=== PATIENT | female | born 2000 | race Caucasian/White ===

== ENCOUNTER 2021-11-11 23:36 | Emergency (ER) | payer MEDICAID, SELFPAY ==
[2021-11-11 23:45] VITALS: BP 144/85; PULSE 100; RESP 17; TEMP 36.7; O2SAT 97; BMI 50.8
--- NOTE | 2021-11-12 00:48 | XRR_ITS ---
PROCEDURE INFORMATION: Exam: XR Chest Exam date and time: 11/12/2021 12:56 AM Age: 20 years old Clinical indication: Angina; Additional info: Cp TECHNIQUE: Imaging protocol: Radiologic exam of the chest. Views: 1 view. COMPARISON: No relevant prior studies available. FINDINGS: Lungs: Unremarkable. No consolidation. Pleural spaces: Unremarkable. No pleural effusion. No pneumothorax. Heart/Mediastinum: Unremarkable. No cardiomegaly. Bones/joints: Unremarkable. XR/XR chest 1V portable [id number] IMPRESSION: No acute findings.
--- NOTE | 2021-11-12 00:48 | ECG_ITS ---
[facility] Test Date: 2021-11-11 Pat Name: Yesi Clifford Department: Room: Gender: Female Accounting Assistant: : 2000 Requested By: Radha Kingsley Order Number: [id number] Janna MD: Magno Arias M.D. Measurements Intervals [place] Rate: 105 P: 18 GA: 152 QRS: 25 QRSD: 76 T: 20 QT: 321 QTc: 425 Interpretive Statements SINUS TACHYCARDIA POSSIBLE ANTERIOR MYOCARDIAL INFARCTION , OF INDETERMINATE AGE [30 ms Q WAVE IN V3/V4, OR R < 0.2 mV IN V4] No previous ECG available for comparison Electronically Signed On 11-12-2021 8:41:14 CDT by Magno Arias M.D. [id number]
--- NOTE | 2021-11-12 00:53 | W.ED.GENADLT ---
HPI - General Adult General: Chief complaint: General Medical Stated complaint: High B/P Time Seen by Provider: 11/12/21 00:12 Source: patient Mode of arrival: ambulatory Limitations: no limitations History of Present Illness: 20-year-old female who has a history of hypertension. She states that she is not very consistent in taking her meds and missed her lisinopril for 4 to 5 days. She states that tonight she started to feel lightheaded and having chest pain checked her blood pressure was in the 180s and she took a 10 mg lisinopril it is actually . Her blood pressure is improved here and states she does feel improved currently. She denies any vomiting or diarrhea denies any headaches. Associated symptoms: Reports chest pain; Deny dyspnea, headache(s), nausea, rash or vomiting Review of Systems Const: Denies: fever(s), chills, body aches or change in appetite Eyes: Denies: blurry vision or eye discomfort ENMT: Denies: throat pain or dental pain Card: Reports: chest pain Resp: Denies: dyspnea GI: Denies: abdominal pain, nausea, vomiting or diarrhea : Denies: dysuria Musc: Denies: neck pain or back pain Skin/Breast: Denies: rash Neuro: Denies: headache(s) Psych: Denies: depression Matt/Lymph: Denies: easy bruising All/Imm: Denies: urticaria PFSH ED PFSH: Medical History (Updated 11/12/21 @ 01:54 by Radha Kingsley MD) Hypertension Social History (Updated 11/12/21 @ 00:54 by Radha Kingsley MD) Substance/Drug Use: never Physical Exam Const: COMMON NORMALS: no acute distress, patient oriented x3 and healthy appearing HENMT: COMMON NORMALS: normocephalic and atraumatic HEAD & SCALP: normocephalic and atraumatic Eye: COMMON NORMALS: Equal, round and reactive pupils present and EOMs intact bilaterally PUPIL: Yes Equal, round and reactive pupils present Neck/C-Spine: COMMON NORMALS: full ROM and supple Chest: COMMONS NORMALS: normal inspection of the chest and normal palpation of entire chest wall Resp: COMMON NORMALS: normal respiratory effort, No retractions, No use of accessory muscles and clear to auscultation bilaterally AUSCULTATION: clear to auscultation bilaterally Cardio: COMMON NORMALS: regular rate, regular rhythm and No murmurs present (Cardio) RATE: regular rate RHYTHM: regular rhythm GI: COMMON NORMALS: Normal to inspection, nondistended, normoactive bowel sounds present, Soft to palpation, non-tender and no masses PALPATION: Yes Soft to palpation Extremity: COMMON NORMALS: normal to inspection and full ROM Neuro: COMMON NORMALS: patient oriented x3, moves all extremities and no focal motor deficits Psych: COMMON NORMALS: mental status grossly normal, Normal thought process present and cooperative THOUGHT PROCESS: Normal thought process present Skin: COMMON NORMALS: no rashes or lesions noted and no wounds GENERAL SKIN EXAM: no rashes or lesions noted Course Vital Signs: Vital signs: Vital Signs Temperature 98.1 F 11/11/21 23:45 Pulse Rate 100 11/11/21 23:45 Respiratory Rate 17 11/11/21 23:45 Blood Pressure 144/85 11/11/21 23:45 Pulse Oximetry 97 11/11/21 23:45 [facility] [place] - General Adult Medical Decision Making Patient presents here with hypertension likely from being noncompliant. Patient's blood pressure here has been normal since she took her lisinopril at home. She has lisinopril at home its not she is to take it as prescribed she is stable for discharge is to follow-up with PCP and return if worsening she understands agrees to plan. Lab Data : 11/12/21 01:25 11/12/21 01:25 Radiology Impressions Chest X-Ray 11/12/21 00:48 IMPRESSION: No acute findings. Laboratory Results WBC 11.8 10^3/uL (4.0-10.0) H 11/12/21 01:25 RBC 4.64 10^6/uL (4.1-5.3) 11/12/21 01:25 Hgb 13.2 g/dL (11.5-15.3) 11/12/21 01:25 Hct 39.2 % (37.0-47.0) 11/12/21 01:25 MCV 84.5 fl (81-99) 11/12/21 01:25 MCH 28.4 pg (28.0-34.0) 11/12/21 01:25 MCHC 33.7 g/dL (30.0-36.0) 11/12/21 01:25 RDW 13.3 % (12.1-15.1) 11/12/21 01:25 Plt Count 332 10^3/cmm (130-400) 11/12/21 01:25 MPV 11.1 fL (7.4-10.4) H 11/12/21 01:25 Neut % (Auto) 60.2 % 11/12/21 01:25 Lymph % (Auto) 26.8 % 11/12/21 01:25 Josephine % (Auto) 10.0 % 11/12/21 01:25 Eos % (Auto) 1.8 % 11/12/21 01:25 Baso % (Auto) 0.8 % 11/12/21 01:25 Neut # (Auto) 7.12 10^3/uL (1.8-7.7) 11/12/21 01:25 Lymph # (Auto) 3.2 10^3/uL (0.8-4.8) 11/12/21 01:25 Josephine # (Auto) 1.2 10^3/uL (0.2-0.9) H 11/12/21 01:25 Eos # (Auto) 0.2 10^3/uL (0.0-0.8) 11/12/21 01:25 Baso # (Auto) 0.1 10^3/uL (0.0-0.1) 11/12/21 01:25 Nucleated RBC % (auto) 0 % 11/12/21 01:25 Nucleated RBCs # 0.0 /100WBC 11/12/21 01:25 Sodium 138 mmol/L (136-145) 11/12/21 01:25 Potassium 3.5 mmol/L (3.5-5.1) 11/12/21 01:25 Chloride 104 mmol/L (98-107) 11/12/21 01:25 Carbon Dioxide 21 mmol/L (22-29) L 11/12/21 01:25 Anion Gap 16.5 (5-19) 11/12/21 01:25 BUN 9 mg/dL (6-20) 11/12/21 01:25 Creatinine 0.7 mg/dL (0.5-0.9) 11/12/21 01:25 GFR Calculation 105.6 mL/min (90-130) 11/12/21 01:25 Glucose 98 mg/dL (65-115) 11/12/21 01:25 Calculated Osmolality 285 mOsm/kg (285-295) 11/12/21 01:25 Calcium 8.8 mg/dL (8.5-10.5) 11/12/21 01:25 Total Bilirubin 0.2 mg/dL (0.15-1.2) 11/12/21 01:25 AST 22 U/L (0-32) 11/12/21 01:25 ALT 28 U/L (0-33) 11/12/21 01:25 Alkaline Phosphatase 79 IU/L (35-105) 11/12/21 01:25 Troponin T Baseline 6 ng/L (0-10) 11/12/21 01:25 Total Protein 6.8 g/dL (6.6-8.7) 11/12/21 01:25 Albumin 3.9 g/dL (3.5-5.2) 11/12/21 01:25 Globulin 2.9 g/dL (1.3-4.6) 11/12/21 01:25 HCG, Qual Negative (Negative) 11/12/21 01:25 EKG Data EKG 1: I personally reviewed and interpreted this EKG as follows: EKG interpretation date: 11/11/21 EKG interpretation time: 23:52 Interpretation: sinus tach hr [address] or t wave abnormalities qrs 76 qtc 382 Computer generated interpretation: Chest X-Ray 11/12/21 00:48 IMPRESSION: No acute findings. Discharge Plan Discharge Patient Disposition: Home Clinical Impression: Hypertension Discharge Orders: Discharge ED (Routine); Ordered 11/12/21 Ordered By: Radha Kingsley Discharge Diet: Advance as tolerated Discharge Activity: Resume usual activity Patient Instructions: Hypertension (ED) Coding Level of Care Code ED Bobbin Stripper for Chg Fwd Exam Comprehensive
[2021-11-12 01:30] LABS: Basophils # 0.1 10^3/uL (0.0-0.1); Basophils % 0.8 %; Eosinophils # 0.2 10^3/uL (0.0-0.8); Eosinophils % 1.8 %; Hematocrit 39.2 % (37.0-47.0); Hemoglobin 13.2 g/dL (11.5-15.3); Lymphocytes # 3.2 10^3/uL (0.8-4.8); Lymphocytes % 26.8 %; Mean Corpuscular HGB Conc 33.7 g/dL (30.0-36.0); Mean Corpuscular Hemoglobin 28.4 pg (28.0-34.0); Mean Corpuscular Volume 84.5 fl (81-99); Mean Platelet Volume 11.1 fL (7.4-10.4); Monocytes # 1.2 10^3/uL (0.2-0.9); Neutrophils # 7.12 10^3/uL (1.8-7.7); Neutrophils % 60.2 %; Nucleated Red Blood Cells % 0 %; Platelet Count 332 10^3/cmm (130-400); Red Blood Count 4.64 10^6/uL (4.1-5.3); Red Cell Distribution Width 13.3 % (12.1-15.1); White Blood Count 11.8 10^3/uL (4.0-10.0)
[2021-11-12 01:45] LABS: HCG, Serum Qual Negative (Negative)
[2021-11-12 01:46] LABS: Alanine Aminotransferase 28 U/L (0-33); Albumin Level 3.9 g/dL (3.5-5.2); Alkaline Phosphatase 79 IU/L (35-105); Anion Gap 16.5 (5-19); Aspartate Amino Transferase 22 U/L (0-32); Blood Urea Nitrogen 9 mg/dL (6-20); Calcium 8.8 mg/dL (8.5-10.5); Carbon Dioxide 21 mmol/L (22-29); Chloride 104 mmol/L (98-107); Creatinine Clr Calc Pharmacy 149.4644; Globulin 2.9 g/dL (1.3-4.6); Glomerular Filtration Rate 105.6 mL/min (90-130); Glucose 98 mg/dL (65-115); Osmolality Calculated 285 mOsm/kg (285-295); Potassium 3.5 mmol/L (3.5-5.1); Sodium 138 mmol/L (136-145); Total Bilirubin 0.2 mg/dL (0.15-1.2); Total Protein 6.8 g/dL (6.6-8.7)
[2021-11-12 01:48] LABS: Troponin(5th) Baseline 6 ng/L (0-10)
[2021-11-12 02:22] VITALS: BP 108/78; PULSE 81; RESP 16; TEMP 36.6; O2SAT 98
== END 2021-11-12 02:25 | disposition home or self-care (01) ==
PROVIDERS: Emergency Provider Emergency Medicine
DX: I10 Essential (primary) hypertension (principal)
CPT/HCPCS: 71045; 80053; 84484; 84703; 85025; 93005; 99284